=== PATIENT | female | born 1970 | race Caucasian/White ===

== ENCOUNTER 2022-04-02 11:30 | Inpatient (IN) ==
--- NOTE | 2022-02-27 10:27 | PAT Medication Instructions ---
Medication Instructions Date of Service February 27, 2022 Home Medications bdvgpjj-yhpyeaaybhdzn-ewenekmr 250 mg-250 mg-65 mg tablet (Excedrin Migraine) 1 tab PO Q6H PRN Migraine Headache gabapentin 100 mg tablet 300 mg PO TID Continue as directed gabapentin 100 mg tablet 300 mg PO TID ASK your surgeon for instructions ckhabvs-ycyxrrmjxkskv-etldusoq 250 mg-250 mg-65 mg tablet (Excedrin Migraine) 1 tab PO Q6H PRN Migraine Headache Other Notes If you have any questions please call us at [phone] or [phone] or [phone] or [phone]
--- NOTE | 2022-03-05 11:01 | Anesthesiology Consultation ---
Date of Service March 05, 2022 Assessment & Plan (1) Encounter for pre-operative examination: - COVID screening: Per assessment on 03/05: No known COVID-19 positive contacts or current COVID-19 related symptoms. Travel screen negative. Patient vaccinated. At surgeon discretion if preop Covid testing being done. - PONV: Hx of "severe" PONV with multiple surgeries. Will order scope patch for AM DOS. Chart Review Chart Review: Acceptable Risk for Surgery and Patient seen in Pre Admission Testing Teaching & Discussion Pre-Anesthesia Teaching/Discussion Notes: Instructed NPO after midnight before surgery,except medications with 15 cc of water. Medication instructions provided according to the PAT guidelines. History Surgery Operation Date: 04/02/22 11:05 Proposed Procedures p L5-S1 Decompression and Fusion, Spinal Cord Monitoring - José Miguel Calabrese DO Height/Weight Height: 5 ft 1 in Weight: 118.7 kg Allergies Allergy/AdvReac Type Severity Reaction Status Date / Time hydromorphone [From Dilaudid] Allergy Severe chest Verified 02/26/22 14:47 pressure Penicillins Allergy Severe Anaphylaxis Verified 02/26/22 14:47 Sulfa (Sulfonamide Allergy Severe Anaphylaxis Verified 02/26/22 14:47 Antibiotics) Medications Home Medications Medication Instructions Recorded Confirmed Last Taken senqwuh-oefeaobfyiiaj-hpimtyua 250 1 tab PO Q6H PRN Migraine Headache 02/26/22 02/26/22 Unknown mg-250 mg-65 mg tablet (Excedrin Migraine) gabapentin 100 mg tablet 300 mg PO TID 02/26/22 02/26/22 Unknown Past Medical History Medical History (Updated 03/05/22 @ 11:11 by Maida Montague) Chronic back pain r/t work accident 05/2021, lumbar bulging disc History of COVID-19 12/2020, asymptomatic Hx of Miranda's palsy Approximately 1999 (r/t migraines and stress), no issues since Hx of cervical cancer Approximately 1994 s/p hysterectomy (no chemo/xrt) Hx of gastroesophageal reflux (GERD) Migraine Morbid obesity TMJ (dislocation of temporomandibular joint) Hx locking (with dental procedures/nighttime), + cracking Exercise / Class Metabolic Activity III < 4 Walking/Shop/Light housework Past Family History Family History Grandmother Family history of reaction to anesthesia PONV and "very slow to wake up" Mother Family history of reaction to anesthesia PONV and "very slow to wake up" Past Surgical History Surgical History H/O wisdom tooth extraction History of anesthesia reaction "Very slow to wake up" History of ankle surgery left ankle reconstruction History of esophagogastroduodenoscopy (EGD) History of myringotomy BMT History of tonsillectomy Hx laparoscopic cholecystectomy Nausea and vomiting after administration of anesthetic agent S/P epidural steroid injection S/P laparoscopic hysterectomy r/t cervical cancer Past Anesthesia History Other ("Very slow to wake up" with multiple surgeries) Mother- slow to wake + PONV History of PONV History of PONV and Hx of Motion Sickness (+ Vertigo) Social History Smoking Status: Current every day smoker tobacco type: cigarettes Smoking cigarettes per day: 10 cigs/day Do You Dip or Chew Tobacco: No Hx Alcohol Use: No Hx Substance Use: No substance use type: does not use Review of Systems Patient denies chest pain, shortness of breath, fever, chills, cough, wheezing, palpitations. Physical Exam Vital Signs VITALS BP 98/62 (per pt, chronic low-normal BP, asymptomatic- PCP monitoring) P 87 TEMP SP02 97%RA RESP 16 PHYSICAL Full cervical extension range of motion. Full TMJ range of motion. TMD 4 finger breaths Mallampati Score 3 Dentition: several missing/chipped teeth including upper front teeth Lungs: clear throughout to auscultation Cardiac: regular rate and rhythm, no murmurs noted Spine: normal Carotid arteries: negative bruit Extremities: no edema Lab Results Anesthesia Preop Results Results Anesthesia Widget: WBC 9.07 K/ul (4.8-10.8) 03/05/22 Hgb 13.9 g/dl (12.0-16.0) 03/05/22 Hct 39.8 % (34.1-44.9) 03/05/22 Plt 218 K/uL (130-400) 03/05/22 Na 136 mmol/L (136-145) 03/05/22 K 4.0 mmol/L (3.5-5.1) 03/05/22 Cl 107 mmol/L (98-107) 03/05/22 CO2 23 mmol/L (21-32) 03/05/22 BUN 22 mg/dl (6-23) 03/05/22 Creat 0.81 mg/dl (0.6-1.2) 03/05/22 Glucose Level 121 mg/dl (70-99(Fasting)) H 03/05/22 PT 9.8 Seconds (9.0-12.0) 03/05/22 PTT 26.4 Seconds (21.0-31.0) 03/05/22 INR 0.9 (0.9-1.1) 03/05/22 Urine Color Yellow 03/05/22 Urine Appearance Clear (Clear) 03/05/22 Urine pH 5.5 (4.5-7.5) 03/05/22 Urine Specific [place] 1.029 (1.000-1.030) 03/05/22 Urine Protein Negative (Negative) 03/05/22 Urine Glucose (UA) Negative (Negative) 03/05/22 Urine Ketones Negative (Negative) 03/05/22 Urine Blood Negative (Negative) 03/05/22 Urine Nitrite Negative (Negative) 03/05/22 Urine Bilirubin Negative (Negative) 03/05/22 Urine Urobilinogen Negative (Negative) 03/05/22 Urine Leukocyte Esterase Negative (Negative) 03/05/22 Blood Type A Positive 03/05/22 Antibody Screen NEGATIVE 03/05/22 Testing Electrocardiogram Date: 03/05/22 NSR at 92bpm. Low voltage QRS. Chest X-Ray Date: 03/05/22 FINDINGS: PA and lateral chest radiographs are obtained. No prior studies are available for comparison at the time of dictation. The cardiomediastinal silhouette is unremarkable. There is mild elevation of the right hemidiaphragm. The lungs and pleural spaces are clear. There is no pneumothorax. A minimal compression deformity is suggested in the lower thoracic region. IMPRESSION: No active disease in the chest. COVID-19 Risk Screen Screening Information COVID-19 Screen Date: 03/05/22 Exposure 21 Days Family/Household +COVID Last 21 Days: No Exposure 10 Days Any COVID Exposure Last 10 Days: No Symptoms Last 10 Days Experienced COVID Sx Last 10 Days: No + COVID 0-90 Days COVID + in Last 0-90 Days: No
[~2022-04-02 11:30] MED LIST: ACETAMINOPHEN 500 MG TAB PO SCH; CLINDAMYCIN/D5W 900 MG/50 ML BAG IV SCH; GABAPENTIN 900 MG DOSE PO SCH; LR 15ML/HR IV SCH; Scopolamine 1 MG TDSY TD SCH
[2022-04-02] MEDS ORDERED: LIDOCAINE 2% MPF LOCAL 5 ML VIAL INFIL ONE (12:05)
[2022-04-02] MEDS ORDERED: DEXAMETHASONE SOD INJ 4 MG/ML VIAL ONE (12:05)
[2022-04-02] MEDS ORDERED: ONDANSETRON INJ 2 MG/ML 2 ML VIAL ONE (12:05)
[2022-04-02] MEDS ORDERED: ROCURONIUM BROMIDE 10 MG/ML 5 ML VIAL IV ONE (12:05)
[2022-04-02] MEDS ORDERED: PROPOFOL IV EMULSION 10 MG/ML 20 ML VIAL IV ONE (12:05)
[2022-04-02] MEDS ORDERED: MIDAZOLAM HCL 1 MG/ML 2ML VIAL ONE (12:06)
[2022-04-02] MEDS ORDERED: fentaNYL citrate 100 MCG/2 ML VIAL ONE ×2 (12:06→14:02)
--- NOTE | 2022-04-02 12:26 | History & Physical Bridge Note ---
Date of Service April 02, 2022 History & Physical Bridge Note I have examined the patient, reviewed the History & Physical and in the interval since the performance of the History & Physical I have noted the following changes of clinical significance: no changes noted
--- NOTE | 2022-04-02 12:27 | History & Physical Report ---
Date of Service April 02, 2022 Assessment & Plan (1) Lumbar disc herniation with radiculopathy: Plan: Lumbar decompression fusion L5-S1 History of Present Illness Chief Complaint: Back and leg pain Primary Care Provider: Nikhil Olivo DO This 51-year-old female presents with current persistent back and leg pain. Failing course of nonoperative care she is here for surgical invention. Allergies Allergy/AdvReac Type Severity Reaction Status Date / Time hydromorphone [From Dilaudid] Allergy Severe chest Verified 04/02/22 12:12 pressure Penicillins Allergy Severe Anaphylaxis Verified 04/02/22 12:12 Sulfa (Sulfonamide Allergy Severe Anaphylaxis Verified 04/02/22 12:12 Antibiotics) Home Medications Medication Instructions Recorded Confirmed Type huelfig-phlbdaetejwhf-fwgrevjd 250 1 tab PO Q6H PRN Migraine Headache 02/26/22 04/02/22 History mg-250 mg-65 mg tablet (Excedrin Migraine) gabapentin 100 mg tablet 300 mg PO TID 02/26/22 04/02/22 History Past Med/Surg History Medical History (Updated 04/02/22 @ 12:27 by José Miguel Calabrese DO) Chronic back pain r/t work accident 05/2021, lumbar bulging disc History of COVID-19 12/2020, asymptomatic Hx of Miranda's palsy Approximately 1999 (r/t migraines and stress), no issues since Hx of cervical cancer Approximately 1994 s/p hysterectomy (no chemo/xrt) Hx of gastroesophageal reflux (GERD) Migraine Morbid obesity TMJ (dislocation of temporomandibular joint) Hx locking (with dental procedures/nighttime), + cracking Surgical History H/O wisdom tooth extraction History of anesthesia reaction "Very slow to wake up" History of ankle surgery left ankle reconstruction History of esophagogastroduodenoscopy (EGD) History of myringotomy BMT History of tonsillectomy Hx laparoscopic cholecystectomy Nausea and vomiting after administration of anesthetic agent S/P epidural steroid injection S/P laparoscopic hysterectomy r/t cervical cancer Family History Grandmother Family history of reaction to anesthesia PONV and "very slow to wake up" Mother Family history of reaction to anesthesia PONV and "very slow to wake up" Social History Smoking Status: Current every day smoker Cigarettes Per Day: 10 cigs/day; Second Hand Exposure: No; Do You Dip or Chew Tobacco: No; Tobacco Cessation Education Requested by Patient: No Hx Alcohol Use: No Hx Substance Use: No Preferred Language: Polish Communication Ability: Effective Press Operator Apprentice Required: No Beliefs That Will Affect Care: None Current Living Situation: Spouse Other Information That Helps Us Care for You: No Feels Safe at Home: Yes Safety Concerns: Feels Safe At This Time Assistive Devices: None Physical Exam Physical Exam: Patient is alert and oriented Heart regular rhythm Lungs clear
[2022-04-02] MEDS ORDERED: BUPIVACAINE/EPINEPHRINE 0.25% 1:200,000 30 ML VIAL ONE (12:37)
[2022-04-02] MEDS ORDERED: ceFAZolin 330 MG/ML 1 GM VIAL ONE (12:37)
[2022-04-02] MEDS ORDERED: FLOSEAL HEMOSTATIC MATRIX 10ML TOP ONE (13:36)
--- NOTE | 2022-04-02 14:18 | Operative Report ---
Post Operative Report Pre & Post Diagnosis Operation Date: 04/02/22 13:25 Pre-Op Diagnosis: Lumbar Disc Herniation with Radiculopathy Post-Op Diagnosis: Lumbar Disc Herniation with Radiculopathy I identified the patient and participated in the time-out.: Yes Procedure Operation Date: 04/02/22 13:25 Actual Procedures #1 lumbar decompression bilateral medial facetectomies and foraminotomies L5-S1. #2 posterior spinal fusion L5-S1. #3 placement posterior instrumentation L5- S1. #4 interbody fusion L5-S1. #5 placement of Spira 13 x 26 mm cage at L5-S1. #6 placement of locally harvested morselized autograft in the posterior gutters. #7 placement of I factor combined with V toss in the interbody space and posterior lateral gutters. Surgeon José Miguel Calabrese, DO Traffic Analyst Shae Brambila Estimated Blood Loss 100 Findings See Below The patient is 5 foot 1 weighing over 119 kg with a BMI in excess of 49. Patient's body habitus did contribute to significant technical difficulty required deepest retractors longer instruments under perform her procedure. This had at least 50% increased operative time. Specimens None Indications This is a 51-year-old female who presents above-mentioned diagnosis after failed course of nonoperative care she is here for surgical invention. Description of Procedure Patient was met with identified informed consent obtained. Patient was then taken to the operative suite underwent a patient placed in a prone position on the Michel table on top of the Oni frame. All bony prominences well-padded eyes inspected to ensure no external pressure placed upon them. This point the lumbar spine was prepped and draped in normal sterile fashion. Sharp dissection with the assistance of Bovie cautery was then performed down to and exposing the lamina transverse processes of L5 and the sacral ala bilaterally. From a caudal cephalad fashion complete laminectomy L5 was performed including bilateral medial facetectomies and foraminotomies as well as addressing a massive discrimination on the right with significant encroachment of the traversing S1 nerve root. After complete decompression pedicle screws were placed in L5 and S1 levels bilaterally with assistance of fluoroscopy and appropriately sized shaista placed. By way of a transit foraminal approach on the right complete discectomy performed endplates curetted to subcortical any bone and a 13 x 26 mm spiral cage filled I factor tapped in position. The rods then locked in final position bilaterally. The transverse processes of L5 and sacral ala burred to subcortical bleeding bone. I factor combined with V toss and locally harvested morselized autograft was placed in the posterior gutters. 15 round CHRISTINA drain inserted. The incision was then closed with 1 Vicryl the fascia 2-0 Vicryl subcutaneously and 4 Monocryl for final skin closure. Steri-Strip sterile dressings placed. Patient waken taken to the PACU in stable condition. Please note spinal cord monitoring was utilized at the procedure no changes noted. Lastly Shae Brambila was present out the entire procedure involved the patient positioning complex portions of the surgery and final skin closure. I attest to the content of the Intraoperative Record and any orders documented therein. Any exceptions are noted below.
[2022-04-02] MEDS ORDERED: ONDANSETRON INJ 2 MG/ML 2 ML VIAL IV PRN ×2 (14:21→16:02)
[2022-04-02] MEDS ORDERED: ATROPINE SULFATE 0.1 MG/ML 10ML SYR IV PRN (14:21)
[2022-04-02] MEDS ORDERED: fentaNYL citrate 100 MCG/2 ML VIAL IV PRN (14:21)
[2022-04-02] MEDS ORDERED: ePHEDrine sulfate 50 MG/ML AMP IV PRN (14:21)
--- NOTE | 2022-04-02 14:43 | Fluoroscopy Report ---
FL lumbar spine 2-3V HISTORY: 51 years-old Female L5-S1 Decompression and fusion COMPARISON: Chest radiograph 03/05/2022 TECHNIQUE: 2 spot fluoroscopic images of the lumbar spine were obtained utilizing 25.6 seconds fluoro scopy time FINDINGS: Posterior interbody shaista and screw fusion with discectomy noted at L5-S1. The visualized hardware appe ars intact. No unexpected opaque foreign body identified. IMPRESSION: Fluoroscopic assistance as above. ACT 112: Negative or not required by law. The above report was generated using voice recognition software. It may contain grammatical, syntax o r spelling errors. Electronically signed by: Chance Jaquez M.D. 04/02/2022 2:42 PM
[2022-04-02] MEDS ORDERED: ALBUT/IPRATROP 3MG/0.5MG NEB 3 ML VIAL ONE (14:46)
[2022-04-02] MEDS ORDERED: ALBUT/IPRATROP 3MG/0.5MG NEB 3 ML VIAL NEB STA (15:29)
--- NOTE | 2022-04-02 15:30 | Anesthesiology Progress Note ---
Date of Service April 02, 2022 Anesthesia Post Procedure Vital Signs Vital Signs: Temp Pulse Resp BP Pulse Ox O2 Del Method O2 Flow Rate 04/02/22 15:20 76 12 109/71 97 Oxymask 2 04/02/22 15:10 80 12 113/73 94 Oxymask 5 04/02/22 15:00 87 16 102/58 L 97 Oxymask 9 04/02/22 14:50 84 17 103/68 96 Nebulizer 9 04/02/22 14:43 36.2 C L 90 16 130/82 91 Oxymask 9 04/02/22 12:15 36.8 C 78 16 100/57 L 97 Room Air Pain Intensity Back: Pain Intensity: 2 Transfer of Care Handoff Completed per policy Notes Mental Status: alert / awake / arousable Patient Amnestic to Procedure: Yes Nausea / Vomiting: adequately controlled Pain: adequately controlled Airway Patency, RR, SpO2: stable & adequate BP & HR: stable & adequate Hydration State: stable & adequate Anesthetic Complications: no major complications apparent and Pt Satisfied with anesthetic care Notes: The patient had some bronchospasm upon waking and was given albuterol in her ETT. She had some wheezing in PACU so was given a Duoneb treatment. Her lungs are clear to auscultation now. She is awake and her vitals are stable.
[2022-04-02] MEDS ORDERED: hydrOXYzine HCl 25 MG TAB PO PRN (16:02)
[2022-04-02] MEDS ORDERED: ONDANSETRON 4 MG OD TAB PO PRN (16:02)
[2022-04-02] MEDS ORDERED: NALOXONE HCL 0.4 MG/1 ML VIAL/CARP IV PRN (16:02)
[2022-04-02] MEDS ORDERED: ALUMINUM/MAGNESIUM SUSP 30 ML UDC PO PRN (16:02)
[2022-04-02] MEDS ORDERED: MoRPHine SULFATE 4 MG/ML 1 ML CARP\\VIAL IV PRN (16:02)
[2022-04-02] MEDS ORDERED: bisacodyL 10 MG SUPP PR PRN (16:02)
[2022-04-02] MEDS ORDERED: FAMOTIDINE 20 MG TAB PO PRN (16:02)
[2022-04-02] MEDS ORDERED: ACETAMINOPHEN 1,000 MG/100 ML VIAL IV PRN (16:02)
[2022-04-02] MEDS ORDERED: ACETAMINOPHEN 500 MG TAB PO PRN (16:02)
[2022-04-02] MEDS ORDERED: oxyCODONE HCL IR 5 MG TAB (IMMEDIATE RELEASE) PO PRN (16:02)
[2022-04-02] MEDS ORDERED: SOD PHOSPHATE/SOD BIPHOSPHATE ENEMA 132 ML BTL PR PRN (16:02)
[2022-04-02] MEDS ORDERED: LORazepam 0.5 MG TAB PO PRN (16:02)
[2022-04-02] MEDS ORDERED: DO NOT ADMINISTER PNEUMOCOCCAL VACCINE PRN (16:02)
[2022-04-02] MEDS ORDERED: PROMETHAZINE HCL 12.5 MG in SODIUM CHLORIDE 0.9% 50 ML IV PRN (16:02)
[2022-04-02] MEDS ORDERED: LORazepam 0.5 MG in SYRINGE 0 ML IV PRN (16:02)
[2022-04-02] MEDS ORDERED: diphenhydrAMINE Capsule 25 MG CAP PO PRN (16:02)
[2022-04-02] MEDS ORDERED: MAGNESIUM HYDROXIDE SUSP 30 ML UDC PO PRN (16:02)
[2022-04-02] MEDS ORDERED: METOCLOPRAMIDE HCL INJ 5 MG/ML 2 ML VIAL IV PRN (16:02)
[2022-04-02] MEDS ORDERED: MoRPHine SULFATE 2 MG/ML CARP IV PRN (16:02)
[2022-04-02] MEDS ORDERED: DO NOT ADMINISTER FLU VACCINE PRN (16:02)
[2022-04-02] MEDS: Scopolamine CHECK PATCH PLACEMENT SCH (17:04)
[2022-04-02] MEDS: traMADol HCL 50 MG TABLET PO PRN (18:35)
[2022-04-02] MEDS ORDERED: Flu Vaccine (Fluarix) 0.5mL SYR (Standard Dose) IM ONE (19:30)
[2022-04-02] MEDS ORDERED: PNEUMOCOCCAL Polysaccharide Vaccine 25mcg/0.5mL vial/Syr IM ONE (19:30)
[2022-04-02] MEDS: DOCUSATE SODIUM/SENNA 50/8.6MG TAB PO SCH (19:48)
[2022-04-02] MEDS: CLINDAMYCIN/D5W 600 MG/50 ML BAG IV SCH (19:48)
[2022-04-02] MEDS: GABAPENTIN 300 MG CAP PO SCH (19:48)
[2022-04-02] MEDS: LACTATED RINGER'S 1,000 ML IV SCH (19:48)
[2022-04-03] MEDS: Scopolamine CHECK PATCH PLACEMENT SCH ×3 (00:28→15:57)
[2022-04-03] MEDS: LACTATED RINGER'S 1,000 ML IV SCH ×2 (03:29→08:33)
[2022-04-03] MEDS: CLINDAMYCIN/D5W 600 MG/50 ML BAG IV SCH (03:30)
[2022-04-03] MEDS: POLYETHYLENE (MIRALAX) 17 GM PACK PO SCH ×3 (05:37→18:00)
[2022-04-03] MEDS: GABAPENTIN 300 MG CAP PO SCH ×3 (08:38→20:50)
[2022-04-03] MEDS: dexAMETHasone 6 MG in SYRINGE 0 ML IV SCH (08:38)
[2022-04-03] MEDS: traMADol HCL 50 MG TABLET PO PRN ×2 (08:42→14:43)
[2022-04-03 10:36] LABS: Basophils # (auto) 0.01 K/uL (0-0.2); Basophils % (auto) 0.1 %; Eosinophils # (auto) 0.01 K/uL (0-0.50); Eosinophils % (auto) 0.1 %; Hematocrit (blood only) 32.7 % (34.1-44.9); Hemoglobin 11.2 g/dl (12.0-16.0); Immature Granulocytes # (auto) 0.09 K/uL (0.00-0.02); Immature Granulocytes % (auto) 0.6 %; Lymphocytes # (auto) 1.51 K/uL (1.2-3.4); Lymphocytes % (auto) 10.6 %; Mean Corpuscular Hemoglobin 33.3 pg (25.0-34.0); Mean Corpuscular Hgb Conc 34.3 g/dL (32.0-36.0); Mean Corpuscular Volume 97.3 fL (80.0-100.0); Mean Platelet Volume 10.6 fL (9.4-12.3); Monocytes # (auto) 0.94 K/uL (0.24-0.82); Monocytes % (auto) 6.6 %; Neutrophils # (auto) 11.73 K/uL (1.4-6.5); Platelet Count 175 K/uL (130-400); RDW Coefficient of Variation 12.8 % (11.5-14.5); RDW Standard Deviation 45.7 fL (36.4-46.3); Red Blood Count 3.36 M/uL (3.93-5.22); White Blood Count 14.29 K/ul (4.8-10.8)
[2022-04-03 11:01] LABS: BUN Creatinine Ratio 22.5 (10-20); Creatinine Clr Calc Pharmacy 91.5 ml/min; Est GFR (African American) 87.6 ml/min; Est GFR (Non-African American) 75.6 ml/min; Potassium 4.4 mmol/L (3.5-5.1)
--- NOTE | 2022-04-03 12:53 | Orthopedic Progress Note ---
Date of Service April 03, 2022 Assessment & Plan (1) Lumbar disc herniation with radiculopathy: Plan: At this time we will continue with physical therapy monitor CHRISTINA operatively discharge home the next day or so. Admission and Anticipated Discharge Date Admission Date: April 02, 2022 Subjective Patient's back pain is controlled right leg symptoms markedly improved Physical Exam Physical Exam: Patient is currently in bed. She is comfortable. Is good strength testing. Results & Data ([facility]) Vital Signs (Past 12 Hours) Vital Signs Temp Pulse Resp BP BP Pulse Ox O2 Del Method 04/03/22 12:34 36.6 C 84 20 105/71 95 Room Air 04/03/22 11:07 37.2 C 72 16 94/66 L 94 Room Air 04/03/22 10:40 99/67 L 04/03/22 07:20 37 C 82 16 84/58 L 94 Room Air 04/03/22 03:44 36.8 C 79 16 103/55 L 94 Room Air
[2022-04-03] MEDS: DOCUSATE SODIUM/SENNA 50/8.6MG TAB PO SCH (20:49)
[2022-04-04] MEDS: Scopolamine CHECK PATCH PLACEMENT SCH ×2 (00:46→07:53)
[2022-04-04] MEDS: POLYETHYLENE (MIRALAX) 17 GM PACK PO SCH ×3 (00:46→11:23)
[2022-04-04] MEDS: GABAPENTIN 300 MG CAP PO SCH (07:53)
[2022-04-04] MEDS: dexAMETHasone 6 MG in SYRINGE 0 ML IV SCH (07:53)
[2022-04-04] MEDS: traMADol HCL 50 MG TABLET PO PRN (09:00)
--- NOTE | 2022-04-04 10:22 | Discharge Summary ---
Date of Service April 04, 2022 Admission HPI Per Admitting Provider This 51-year-old female presents with current persistent back and leg pain. Failing course of nonoperative care she is here for surgical invention. Principal Diagnosis Lumbar spinal stenosis with radiculopathy Discharge Data Allergies Allergy/AdvReac Type Severity Reaction Status Date / Time hydromorphone [From Dilaudid] Allergy Severe chest Verified 04/02/22 12:12 pressure Penicillins Allergy Severe Anaphylaxis Verified 04/02/22 12:12 Sulfa (Sulfonamide Allergy Severe Anaphylaxis Verified 04/02/22 12:12 Antibiotics) Procedures Performed Operation Date: 04/02/22 13:25 Actual Procedures p L5-S1 Decompression and Fusion, Spinal Cord Monitoring(Not Applicable) - José Miguel Calabrese DO Ordered Studies 04/02/22 [place] lumbar spine 2-3V Routine Hospital Course (1) Lumbar disc herniation with radiculopathy: Patient with lumbar decompression fusion tolerated well was taken to orthopedic for postoperative postop and when she is up and angling progressed to postop day #2. CHRISTINA drain decreased appropriate. Excellent strength testing. Separately discharged home. Discharge orders instructions from the chart for further view. Total Time Total Time Spent Total Time Spent (In Minutes): 20 minutes Discharge Plan Discharge Items Patient Disposition: Home - Self-Care Reason For Visit: Intervertebral Disc Disorders with Radiculopathy Discharge Diagnosis: Lumbar disc herniation with radiculopathy Activity: As commented below Non-emergency contact: Primary Care Provider Call non-emergency contact if: you have any medication questions Follow-up/Referrals: Nikhil Olivo DO [Primary Care Provider] - Diet: Regular Addtl Attending Provider Instructions: ACTIVITY RECOMMENDATIONS: SELF CARE INSTRUCTIONS AFTER THORACIC/LUMBAR FUSIONS 1. You may walk to your tolerance. It is good exercise for your legs and back. Expect some back and intermittent leg aches and pains. 2. You may perform "counter-top" level activities (make a sandwich, alannah with a project, etc.). 3. No bending or lifting of more than 10 pounds or back twisting of any nature (roll like a log when turning in bed). 4. You may ride in a car for 20-30 minutes at a time. No driving until after your first visit with your doctor. 5. Frequent changes of position and restricting sitting to 30 minutes at a time will help limit the amount of back spasms and stiffness you may experience. 6. You may discontinue the use of ambulatory aids (cane, crutches, etc.) once your strength and confidence allow. 7. You may warning coordination meteorologist the shower and let water strike your incision when you arrive home at least once daily. Do not take a tub bath, sit in a hot tub or go into a swimming pool until after your first recheck in the office. SPECIAL CARE INSTRUCTIONS: VERY IMPORTANT TO READ AND REVIEW A. Your surgical incision has been closed with a cosmetic suture under the skin that will dissolve in about 6 weeks. In 14 days, you can use a pair of clean scissors and cut the suture that is left outside of the skin at the ends of your incision. 1. The small skin tapes can be removed 7 days after surgery if they have not fallen off by that point. 2. You may keep the wound open to air as much as possible to promote healing after post-op day number 5 unless told otherwise by your doctor. 3. If you think the wound looks like it is becoming infected (redness or worsening drainage) and/or you are experiencing fever, chill or worsening back pain and muscle spasms, contact the office so that we may evaluate you as soon as possible. B. Complications are uncommon, but please contact us if you have any signs or symptoms of: 1. wound infection (fever higher than 102.5 degrees F, redness, separation of wound, drainage, or increasing pain from the incision) 2. blood clots in legs (pain, swelling, redness and warmth in legs) 3. urinary tract infection (fever higher than 102.5 degrees F, burning upon urination or increased frequency of urination) 4. nerve problems (inability to walk on your toes or heels, numbness, loss of bowel or bladder control) 5. any other symptoms that concern you C. Please call the office at if you have any concerns or questions about your operation or recovery. D. No smoking! Smoking drastically decreases the chance of a solid fusion. E. Do not take any anti-inflammatory medications (Indocin, Advil, Motrin, Aspirin, Naprosyn, etc.) as these may inhibit the chance of a solid fusion. Tylenol is okay to take for pain. MANAGING PAIN AFTER SPINAL SURGERY 1. Narcotic medication is intended for short-term use and will be provided for surgical pain. Surgical pain usually lasts for a period of 4-6 weeks. Narcotic medication includes Percocet, Vicodin, Darvocet, Tylenol #3 or Lortab. 2. Longer-term pain is more appropriately treated with non-narcotic medication such as Tylenol ES. 3. Muscle spasm is not appropriately treated with narcotics. Muscle relaxers such as Soma, Flexeril or Skelaxin can be used along with Tylenol ES. 4. Remember that we all live with some "aches and pains". This is not unusual or uncommon after an injury or as we get older. a. Back pain is expected and may include muscle spasms for 4 to 6 weeks after surgery. The pain should gradually improve. If the pain worsens for no apparent reason, please contact the office. b. Intermittent leg pain may also be experienced and should not be concerned about unless it worsens for no apparent reason. If so, please contact the office. 5. We will provide appropriate medication within the normal guidelines of their prescribed use. We will also be very cautious and aware of potential abuse and extended duration of patients' medication needs. a. Pain medications are for your comfort and to assist with sleep and rest so that the tissue can heal. They are not provided in order to return to normal activity and should not be used through the day. To do so or worsening pain at night can result from ongoing tissue damage and development of tolerance to the prescribed medicine. 6. Please allow 2-3 days to process refills. Prescriptions will not be mailed but must be picked up at the office. FOLLOW UP VISIT: Keep your scheduled follow-up appointment. Any questions, please call the office at . Pending Studies at Discharge: No Stand-Alone Forms: My [facility], Smoking Cessation Medications and DC Order Prescriptions: New oxycodone 5 mg tablet 5 mg PO Q6H PRN (Reason: pain, severe) Qty: 30 0RF tramadol 50 mg tablet 50 mg PO Q6H PRN (Reason: pain, moderate) Qty: 30 0RF Continued Excedrin Migraine 250-250-65 mg Tablet 1 tab PO Q6H PRN (Reason: Migraine Headache) gabapentin 100 mg Tablet 300 mg PO TID Discharge Orders: Discharge Order (Routine); Ordered 04/04/22 Ordered By: José Miguel Calabrese Admission Data Admit Date/Time: 04/02/22 14:22 Attending Provider: José Miguel Calabrese Admit Provider: José Miguel Calabrese Primary Care Provider: Nikhil Olivo
== END 2022-04-04 13:43 | disposition home or self-care (01) | DRG 454 ==
LOC: ASU 11:30 → 3W 14:22